=== PATIENT | male | born 1985 | race Caucasian/White ===

== ENCOUNTER 2021-05-04 00:36 | Emergency (ER) | payer BC ==
[~2021-05-04] VITALS: Ht 170.2 cm; Wt 84.1 kg
[2021-05-04] MEDS ORDERED: GUAIFDM PO (02:02)
[2021-05-04] MEDS ORDERED: ACET-3385 PO (02:02)
[2021-05-04 02:15] VITALS: BP 125/75
== END 2021-05-04 02:15 | disposition home or self-care (01) ==
LOC: EMS 00:45
DX: U07.1 COVID-19 (principal); F41.9 Anxiety disorder, unspecified; R07.89 Other chest pain; E78.00 Pure hypercholesterolemia, unspecified
CPT/HCPCS: 99282; Z7502